=== PATIENT | male | born 1960 | race Caucasian/White ===

== ENCOUNTER 2022-11-19 15:09 | Observation (INO) ==
[2022-11-19 16:40] LABS: BASOPHILS # (AUTO) 0.1 X10^3/uL (0.0-0.1); BASOPHILS % (AUTO) 0.4 % (0.2-1.0); EOSINOPHILS # (AUTO) 0.1 x10^3/uL (0.0-0.2); HEMATOCRIT 36.6 % (42.0-54.0); HEMOGLOBIN 12.4 g/dL (13.5-18.0); LYMPHOCYTES # (AUTO) 1.1 X10^3/uL (1.3-2.9); LYMPHOCYTES % (AUTO) 8.7 % (21.0-51.0); MEAN CORPUSCULAR HEMOGLOBIN 30.1 pg (27.0-34.0); MEAN CORPUSCULAR VOLUME 88.4 fL (80.0-100.0); MEAN PLATELET VOLUME 7.1 fL (7.4-11.0); MONOCYTES # (AUTO) 0.8 x10^3/uL (0.3-0.8); MONOCYTES % (AUTO) 6.1 % (0.0-13.0); NEUTROPHILS # (AUTO) 10.9 x10^3/uL (2.2-4.8); NEUTROPHILS % (AUTO) 83.8 % (42.0-75.0); RED BLOOD COUNT 4.14 X10^6/uL (4.7-6.0); RED CELL DISTRIBUTION WIDTH 14.1 % (11.6-16.5)
[2022-11-19 16:55] LABS: ALANINE AMINOTRANSFERASE 31 Units/L (12-78); ALBUMIN 4.2 g/dL (3.4-5.0); ALKALINE PHOSPHATASE 49 Units/L (46-116); ASPARTATE AMINO TRANSFERASE 16 Units/L (15-37); BLOOD UREA NITROGEN 17 mg/dL (7-18); CALCIUM 8.9 mg/dL (8.5-10.1); CHLORIDE 100 mmol/L (98-107); COR NA(FOR HYPERGLY) 143 mmol/L (136-145); CREATININE 1.59 mg/dL (0.70-1.30); SODIUM 139 mmol/L (136-145); TOTAL PROTEIN 7.8 g/dL (6.4-8.2); eGFR NON BLACK RACES 47 (>60)
[2022-11-19 17:24] LABS: BILIRUBIN,URINE NEGATIVE (NEGATIVE); BLOOD/HEMOGLOBIN,URINE NEGATIVE (NEGATIVE); GLUCOSE, URINE 4+ (NEGATIVE); KETONES,URINE NEGATIVE (NEGATIVE); LEUKOCYTE ESTERASE ,URINE NEGATIVE (NEGATIVE); NITRITES,URINE NEGATIVE (NEGATIVE); PROTEIN,URINE 3+ (NEGATIVE); UROBILINOGEN,URINE 1+ (NORMAL)
[2022-11-19 17:38] LABS: APPEARANCE,URINE CLEAR (CLEAR); BACTERIA,URINE TRACE /HPF (NEGATIVE); COLOR,URINE YELLOW (YELLOW); RBC,URINE NONE SEEN /HPF (0-3); SQUAMOUS EPITHELIAL CELL,UR NEGATIVE /HPF (NEGATIVE)
[2022-11-19 17:39] LABS: GRANULAR CASTS,URINE RARE /LPF (NEGATIVE); HYALINE CASTS, URINE FEW /LPF (NEGATIVE)
[2022-11-19] MEDS ORDERED: NovoLIN R (or HumuLIN R) SUBCUT PRN (18:07)
[2022-11-19] MEDS: NS 1,000 ML IV 1,000 ML IV SCH (18:11)
[2022-11-19] MEDS ORDERED: POTASSIUM CHLORIDE LIQ 20 MEQ UDC PO PRN (19:26)
[2022-11-19] MEDS ORDERED: K-RIDER 10 MEQ/NS 100 ML 10 MEQ/100 ML BAG IV PRN (19:26)
[2022-11-19] MEDS ORDERED: KLOR-CON PO PRN (19:26)
[2022-11-19] MEDS ORDERED: K-DUR TAB 20 MEQ PO PRN (19:26)
[2022-11-19] MEDS ORDERED: RESTORIL CAP 15 MG PO PRN (19:46)
[2022-11-19] MEDS: SNACK - Diabetic Appropriate PO SCH (20:12)
[2022-11-20] MEDS: NS 1,000 ML IV 1,000 ML IV SCH ×2 (06:00→20:25)
[2022-11-20 06:43] LABS: BASOPHILS # (AUTO) 0.1 X10^3/uL (0.0-0.1); EOSINOPHILS # (AUTO) 0.3 x10^3/uL (0.0-0.2); HEMATOCRIT 29.8 % (42.0-54.0); HEMOGLOBIN 10.5 g/dL (13.5-18.0); LYMPHOCYTES # (AUTO) 1.5 X10^3/uL (1.3-2.9); LYMPHOCYTES % (AUTO) 17.8 % (21.0-51.0); MEAN CORPUSCULAR HGB CONC 35.3 g/dL (33.0-35.0); MEAN CORPUSCULAR VOLUME 87.7 fL (80.0-100.0); MEAN PLATELET VOLUME 7.3 fL (7.4-11.0); MONOCYTES # (AUTO) 0.8 x10^3/uL (0.3-0.8); MONOCYTES % (AUTO) 9.2 % (0.0-13.0); NEUTROPHILS # (AUTO) 5.9 x10^3/uL (2.2-4.8); RED CELL DISTRIBUTION WIDTH 14.2 % (11.6-16.5); WHITE BLOOD COUNT 8.5 X10^3/uL (3.6-10.0)
[2022-11-20 07:01] LABS: ALANINE AMINOTRANSFERASE 24 Units/L (12-78); ALBUMIN 3.3 g/dL (3.4-5.0); ALKALINE PHOSPHATASE 38 Units/L (46-116); ASPARTATE AMINO TRANSFERASE 14 Units/L (15-37); BLOOD UREA NITROGEN 17 mg/dL (7-18); CALCIUM 8.7 mg/dL (8.5-10.1); CARBON DIOXIDE 26.7 mmol/L (21-32); CHLORIDE 104 mmol/L (98-107); COR CA(FOR HYPOALB) 9.3 mg/dL (8.5-10.1); COR NA(FOR HYPERGLY) 140 mmol/L (136-145); CREATININE 1.18 mg/dL (0.70-1.30); MAGNESIUM 1.5 mg/dL (2.0-2.9); SODIUM 138 mmol/L (136-145); TOTAL PROTEIN 6.3 g/dL (6.4-8.2); eGFR NON BLACK RACES > 60 (>60)
--- NOTE | 2022-11-20 08:08 | RAD ---
HISTORYGENERALIZED WEAKNESS, ADULT FAILURE TO THRIVE Relevant Clinical InformationSTUDYCHEST, 1 VIEWCOMPARISONNone availableFINDINGSTrachea is midline. There is elevation of the right diaphragm with few patchy atelectasis. There is [id number] cardiomegaly. No evidence of focal pneumonia no pneumothorax or pleural effusions.IMPRESSIONElevation of the right diaphragm with few atelectasis, non specific intra-abdominal pathology is not excludedNo acute cardiopulmonary disease.Electronically signed by: Terri Flores (Nov 20, 2022 08:06:42)
[2022-11-20 09:49] VITALS: BMI 30.8
[2022-11-20] MEDS: MAGNESIUM SULFATE 1 GRAM/100 mL PREMIX 1 G/100 ML BAG IV PRN ×2 (10:04→11:24)
--- NOTE | 2022-11-20 18:17 | DR.UPDATE ---
H&P Update Prescription drug monitoring program results: PDMP reviewed and no concerns identified H&P Reviewed: Yes Any changes to H&P?: Yes Changes noted:: PRESENTED TO THE OFFICE WITH COMPLAINTS OF GENERALIZED WEAKNESS AND DECREASED APPETITE. PMH INCLUDES: HYPERLIPIDEMA, HTN, GERD, DM II, TESTICULAR CANCER, ANXIETY, BIPOLAR DISORDER, LEFT TESTICLE REMOVED. HE REPORTS THAT HE REQUIRES THE USE OF A WHEELCHAIR TO GET FROM ROOM TO ROOM. HE CURRENTLY LIVES AT HOME WITH A ROOMMATE, HOWEVER, ROOMMATE WILL BE MOVING SOON. PATIENT REPORTS THAT HE IS NOT ABLE TO PERFORM ADLs OR FIX FOOD ON HIS OWN. HE EXPRESSES CONCERNS THAT HE WILL NO LONGER BE ABLE TO CARE FOR HIMSELF WHEN HIS ROOMMATE MOVES. UPON PRESENTATION TO THE OFFICE, PATIENTS CLOTHING WERE NOTED TO BE SATURATED WITH URINE. PATIENT WAS ADMITTED TO THE HOSPITAL FOR FURTHER EVALUATION AND TREATMENT OF FAILURE TO THRIVE, GENERALIZED WEAKNESS. HE REQUESTS PERMANENT RESIDENTIAL PLACEMENT. ON ARRIVAL TO THE HOSPITAL, VITALS WERE: 98.6-132-20-97%-142/81. LABS WERE OBTAINED. WBC 13.0, RBC 4.14, HGB 12.4, HCT 36.6, PLT COUNT 681, SODIUM 139, POTASSIUM 3.8, CHLORIDE 100, BUN 17, CREATININE 1.59, GLUCOSE 275, CALCIUM 8.9, AST 16, ALT 31, ALK PHOS 49, TOTAL PROTEIN 7.8, ALBUMIN 4.2. URINALYSIS WAS OBTAINED. URINE GLUCOSE 4+, PROTEIN 3+, OTHERWISE UNREMARKABLE. A CHEST XRAY WAS OBTAINED AND REVEALED: Elevation of the right diaphragm with few atelectasis, non specific intra-abdominal pathology is not excluded. No acute cardiopulmonary disease. HE WAS STARTED ON NORMAL SALINE AT 75 ML/HR, OTBS ACHS, HUMULIN R SLIDING SCALE, ECOTRIN 81MG DAILY, LIPITOR 10MG HS, TRICOR 145MG DAILY, GLUCOPHAGE 1000MG BID, AND THE POTASSIUM AND MAGNESIUM PROTOCOLS. WE WILL HAVE PHYSICAL THERAPY EVALUATE HIM. OTHERWISE, WE WILL FOLLOW-UP WITH AM LABS AND CONTINUE TO MONITOR. TIME SPENT ON CLINICAL ASSESSMENT, REVIEWING LABS AND IMAGING, DECISION MAKING, AND DOCUMENTATION GREATER THAN 75 MINUTES. Patient was examined?: Yes
[2022-11-20] MEDS ORDERED: GLUCOPHAGE ONE (20:13)
[2022-11-20] MEDS: GLUCOPHAGE PO SCH (20:25)
[2022-11-20] MEDS: SNACK - Diabetic Appropriate PO SCH (20:26)
[2022-11-20] MEDS ORDERED: VISTARIL PO PRN (20:28)
[2022-11-20] MEDS ORDERED: LIPITOR TAB 10 MG PO SCH (21:00)
[2022-11-21 05:59] LABS: BASOPHILS # (AUTO) 0.1 X10^3/uL (0.0-0.1); BASOPHILS % (AUTO) 1.1 % (0.2-1.0); EOSINOPHILS # (AUTO) 0.5 x10^3/uL (0.0-0.2); EOSINOPHILS % (AUTO) 4.8 % (0.9-2.9); HEMATOCRIT 33.3 % (42.0-54.0); HEMOGLOBIN 11.2 g/dL (13.5-18.0); LYMPHOCYTES # (AUTO) 2.2 X10^3/uL (1.3-2.9); LYMPHOCYTES % (AUTO) 22.1 % (21.0-51.0); MEAN CORPUSCULAR HEMOGLOBIN 29.9 pg (27.0-34.0); MEAN CORPUSCULAR HGB CONC 33.6 g/dL (33.0-35.0); MEAN CORPUSCULAR VOLUME 89.1 fL (80.0-100.0); MEAN PLATELET VOLUME 7.2 fL (7.4-11.0); MONOCYTES # (AUTO) 0.8 x10^3/uL (0.3-0.8); MONOCYTES % (AUTO) 8.7 % (0.0-13.0); NEUTROPHILS # (AUTO) 6.2 x10^3/uL (2.2-4.8); NEUTROPHILS % (AUTO) 63.3 % (42.0-75.0); RED BLOOD COUNT 3.73 X10^6/uL (4.7-6.0); RED CELL DISTRIBUTION WIDTH 14.2 % (11.6-16.5); WHITE BLOOD COUNT 9.8 X10^3/uL (3.6-10.0)
[2022-11-21 06:15] LABS: ALANINE AMINOTRANSFERASE 21 Units/L (12-78); ALBUMIN 3.5 g/dL (3.4-5.0); ALKALINE PHOSPHATASE 41 Units/L (46-116); ASPARTATE AMINO TRANSFERASE 13 Units/L (15-37); BLOOD UREA NITROGEN 12 mg/dL (7-18); CALCIUM 8.7 mg/dL (8.5-10.1); CARBON DIOXIDE 25.6 mmol/L (21-32); CHLORIDE 105 mmol/L (98-107); COR NA(FOR HYPERGLY) 140 mmol/L (136-145); CREATININE 1.04 mg/dL (0.70-1.30); SODIUM 139 mmol/L (136-145); TOTAL PROTEIN 6.9 g/dL (6.4-8.2); eGFR NON BLACK RACES > 60 (>60)
[2022-11-21] MEDS ORDERED: GLUCOPHAGE ONE (08:53)
[2022-11-21] MEDS ORDERED: ASPIRIN EC 81 MG PO SCH (09:00)
[2022-11-21] MEDS ORDERED: TRICOR TAB 145 MG PO SCH (09:00)
[2022-11-21] MEDS: GLUCOPHAGE PO SCH (09:16)
[2022-11-21] MEDS: NS 1,000 ML IV 1,000 ML IV SCH (11:49)
[2022-11-21 12:47] VITALS: BP 149/76
== END 2022-11-21 14:25 ==
LOC: MED/SURG
PROVIDERS: ADMIT Internal Medicine; ATTEND Internal Medicine
DX: J98.11 Atelectasis; R26.89 Other abnormalities of gait and mobility; R79.89 Other specified abnormal findings of blood chemistry; F31.89 Other bipolar disorder; E11.65 Type 2 diabetes mellitus with hyperglycemia; I10 Essential (primary) hypertension; Z99.3 Dependence on wheelchair; R53.1 Weakness; K21.9 Gastro-esophageal reflux disease without esophagitis; R62.7 Adult failure to thrive; F41.8 Other specified anxiety disorders; R46.0 Very low level of personal hygiene; E78.2 Mixed hyperlipidemia; Z85.47 Personal history of malignant neoplasm of testis